=== PATIENT | male | born 1995 | race Hispanic/Latino ===

== ENCOUNTER 2018-08-21 18:37 | Emergency (ER) | payer MEDICAID, MEDICARE ==
[2018-08-21 19:56] LABS: Bilirubin Negative (Negative); Blood, Urine Moderate (Negative); Clarity Cloudy (Clear); Glucose, Urine (Dipstick) Negative (Negative); Leukocyte Small (Negative); Nitrite Negative (Negative); Protein, Urine (Dipstick) 30 mg/dL (Neg-Trace); Specific Gravity, Urine 1.015 (1.005-1.030); pH, Urine 8.5 (5.0-9.0)
[2018-08-21 20:00] LABS: Squamous Epithelial 0-3 HPF (0-3)
[2018-08-21 20:18] LABS: #Basophils 0.1 thou/uL (0.0-0.2); #Eosinphils 0.1 thou/uL (0.0-0.7); #Lymphocytes 1.9 thou/uL (1.20-3.40); #Monocytes 1.6 thou/uL (0.11-0.59); #Neutrophils 15.1 thou/uL (1.40-6.50); %Basophils 0.7 % (0.0-1.0); %Eosinophils 0.7 % (0.0-10.0); %Lymphocytes 10.2 % (21.0-51.0); %Monocytes 8.5 % (0.0-10.0); Hemoglobin 14.9 g/dL (14.0-18.0); Mean Corpuscular HGB CONC 34.1 g/dL (32.0-36.0); Mean Corpuscular Hemoglobin 30.8 pg (27.0-31.0); Mean Corpuscular Volume 90.5 fL (78.0-98.0); Mean Platelet Volume 9.3 fL (7.4-10.4); Platelet Count 238 thou/uL (130-400); Red Blood Cell (RBC) Count 4.83 mill/uL (4.70-6.10); White Blood Cell (WBC) Count 18.9 thou/uL (4.8-10.8)
[2018-08-21 20:39] LABS: ALT (SGPT) 17 U/L (8-55); AST (SGOT) 13 U/L (5-34); Albumin 4.2 g/dL (3.5-5.0); Alkaline Phosphatase 60 U/L (40-150); Anion Gap 14 mmol/L (10-20); BUN (Urea Nitrogen) 10 mg/dL (8.9-20.6); Bilirubin, Total 0.3 mg/dL (0.2-1.2); Calc. Creatinine Clearance 0 mL/min (70-130); Calcium 9.3 mg/dL (7.8-10.44); Carbon Dioxide 26 mmol/L (22-29); Chloride 103 mmol/L (98-107); Estimated GFR-MDRD Greater than 90; Globulin 2.9 g/dL (2.4-3.5); Glucose 101 mg/dL (70-105); Lipase 11 U/L (8-78); Protein, Total 7.1 g/dL (6.0-8.3); Sodium 139 mmol/L (136-145)
[2018-08-21] MEDS ORDERED: Ketorolac Tromethamine 30 MG/ML VIAL ONE (20:54)
[2018-08-21] MEDS ORDERED: Sodium Chloride 0.9% 100 ML ONE (20:54)
[2018-08-21] MEDS ORDERED: cefTRIAXone\\ROCEPHIN 1 GM VIAL ONE (20:54)
[2018-08-21] MEDS ORDERED: Azithromycin 250 MG TAB ONE (21:16)
--- NOTE | 2018-08-21 21:16 | CT ---
NONCONTRAST CT ABDOMEN AND PELVIS: 08/21/18 HISTORY: Right upper quadrant and right CVA abdominal pain. COMPARISON: None available. FINDINGS: The lung bases are clear. The osseous structures are intact. There is a subcentimeter too small to characterize hypodense lesion within the mid portion left kidne y. No renal or ureteral calculi are seen bilaterally, and there is no evidence of hydronephrosis. The appendix is visualized and normal in caliber. Loops of unopacified bowel are grossly normal in appearance. A small amount of retained fecal materia l is seen throughout the colon with a few colonic diverticulitis seen in the region of the sigmoid co lacey. No obvious free fluid, fluid collection, or lymphadenopathy is seen in the abdomen or pelvis. IMPRESSION: 1. Subcentimeter too small to characterize hypodense lesion within the left kidney. No renal or ureteral calculi are seen bilaterally. 2. No CT evidence of appendicitis. 3. Small to moderate amount of retained fecal material seen throughout the colon. POS: ZEUS
[2018-08-25 14:15] LABS: Chlamydia by PCR Not Detected (NotDetected); GC by PCR Not Detected (NotDetected)
== END 2018-08-21 21:36 | disposition home or self-care (01) ==
LOC: SCSER 18:37
DX: N28.89 Other specified disorders of kidney and ureter (principal); D72.829 Elevated white blood cell count, unspecified; F20.9 Schizophrenia, unspecified; F90.9 Attention-deficit hyperactivity disorder, unspecified type
CPT/HCPCS: 36415; 74176; 80053; 81003; 81015; 83690; 85025; 87086; 87491; 87591; 96361; 96365; 96375; J0696; J1885; J7050

== ENCOUNTER 2024-02-03 15:22 | Emergency (ER) | payer MEDICARE, SELFPAY ==
[2024-02-03] MEDS ORDERED: Ondansetron ODT 4 MG TAB ONE (16:26)
[2024-02-03] MEDS ORDERED: Dicyclomine 20 MG/2 ML VIAL ONE (17:07)
== END 2024-02-03 17:22 | disposition home or self-care (01) ==
LOC: ERS 15:22
DX: K52.9 Noninfective gastroenteritis and colitis, unspecified (principal); F17.290 Nicotine dependence, other tobacco product, uncomplicated
CPT/HCPCS: Q0162